=== PATIENT | female | born 2000 | race Caucasian/White ===

== ENCOUNTER → 2020-12-03 10:50 | Outpatient (BNVA) | payer BC, SELFPAY | PROVIDERS: Family Provider Family Medicine; Visit Provider Obstetrics & Gynecology | DX: Z12.4 Encounter for screening for malignant neoplasm of cervix (principal) | CPT/HCPCS: 88175 ==

== ENCOUNTER → 2020-12-10 15:27 | Outpatient (BNVA) | payer BC, SELFPAY | PROVIDERS: Family Provider Family Medicine; Visit Provider Obstetrics & Gynecology | DX: N75.0 Cyst of Bartholin's gland (principal); Z12.4 Encounter for screening for malignant neoplasm of cervix | CPT/HCPCS: 81025; 88304 ==

== ENCOUNTER → 2022-12-21 09:00 | Outpatient (BNVA) | payer OTHER, SELFPAY | PROVIDERS: Family Provider Family Medicine; PCP Family Medicine; Visit Provider Nurse Practitioner Women's Health | DX: Z12.4 Encounter for screening for malignant neoplasm of cervix (principal) | CPT/HCPCS: 88175 ==

== ENCOUNTER → 2023-05-03 08:24 | Outpatient (BNVA) | payer OTHER, SELFPAY | PROVIDERS: Family Provider Family Medicine; PCP Family Medicine; Referring Provider Family Medicine; Visit Provider Psychiatry & Neurology Neurology | DX: G51.0 Bell's palsy (principal) | CPT/HCPCS: 36415; 80053; 82306; 82607; 82746; 83735; 83921; 84439; 84443; 84481; 85025 ==

== ENCOUNTER 2023-05-17 13:44 | Outpatient (CLI) | payer OTHER, SELFPAY ==
--- NOTE | 2023-05-17 13:45 | MR_ITS ---
WS: [id number] MRI HEAD WITH CONTRAST WITH ATTENTION TO THE INTERNAL AUDITORY CANALS TECHNIQUE: Sagittal T1, T2 axial, T2 axial flair, axial susceptibility weighted imaging, axial diffus ion weighted images, and coronal T2 images were obtained. Pre and post T1 axial and post T1 coronal i mages. ADC and FSPGR images. Post gadolinium images with attention to the internal auditory canals. A xial fiesta imaging. 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 FINDINGS: Proximal 7th cranial nerves are normal in appearance. Normal trigeminal nerve root entry zones. No ev idence of enhancing IAC or CP angle mass. No abnormal enhancement in the IACs. Asymmetric enhancement in the right 7th cranial nerve involving the labyrinthine and tympanic segments extending to the mas toid segment more prominent compared to the right can be seen with typical sequelae of Herzog's palsy. Recommend clinical correlation. No enhancing IAC lesions. Normal posterior fossa. Normal vascular erica w voids at the skull base. No extra-axial fluid collections. No evidence of mass or mass effect. Paranasal sinuses and mastoid air cells are well aerated. No suspicious intracranial signal normaliti es. Normal optic chiasm and pituitary infundibulum. Temporal lobes and hippocampal formations are nor mal in appearance. No abnormal gadolinium enhancement. Normal dural venous sinuses. No other suspicio us findings. IMPRESSION: 1. No evidence of enhancing IAC or CP angle mass. Normal trigeminal nerve root entry zones. 2. Slight asymmetric enhancement involving the right labyrinthine and tympanic segments of the facia l nerve can be seen with normal sequelae of Herzog's palsy. Recommend clinical correlation. No enhancin g IAC lesions or fundal tuft enhancement. 3. No hemosiderin on the susceptibility weighted images. 4. No other suspicious findings.
[2023-05-17] MEDS: gadobenate dimeglumine 20 mL vial IV (15:29)
== END 2023-05-17 13:45 | disposition home or self-care (01) ==
LOC: RAD 13:45
PROVIDERS: PCP Family Medicine; Visit Provider Specialist
DX: G51.0 Bell's palsy (principal)
CPT/HCPCS: 70553; A9577

== ENCOUNTER 2023-06-07 11:48 | Outpatient (RCR) | payer OTHER, SELFPAY | END 2023-07-02 23:59 | disposition home or self-care (01) | LOC: SST 11:48 | PROVIDERS: Visit Provider Psychiatry & Neurology Neurology | DX: G51.0 Bell's palsy (principal) | CPT/HCPCS: 92523; 92526; 92610 ==

== ENCOUNTER 2023-06-27 09:45 | Outpatient (CLI) | payer OTHER, SELFPAY ==
--- NOTE | 2023-06-27 09:53 | XRR_ITS ---
PROCEDURE INFORMATION: Exam: XR Bilateral Hips Exam date and time: 06/27/2023 10:00 AM Age: 23 years old Clinical indication: Hip pain; Bilateral; Additional info: Bilateral hip pain, 2 views of each hip done TECHNIQUE: Imaging protocol: Radiologic exam of the bilateral hips. Views: 2 views of hips with pelvis when performed. COMPARISON: No relevant prior studies available. FINDINGS: Bones/joints: Unremarkable. No acute fracture. Soft tissues: Unremarkable. XR/XR hip BI 3-4V wo/w pel [id number] IMPRESSION: No acute findings.
== END 2023-06-27 09:46 | disposition home or self-care (01) ==
PROVIDERS: PCP Family Medicine; Visit Provider Family Medicine
DX: M25.552 Pain in left hip (principal); M25.551 Pain in right hip
CPT/HCPCS: 73521; 73522

== ENCOUNTER 2023-07-03 06:00 | Outpatient (RCR) | payer OTHER, SELFPAY | END 2023-08-02 23:59 | disposition home or self-care (01) | LOC: SST 06:00 | PROVIDERS: PCP Family Medicine; Visit Provider Psychiatry & Neurology Neurology | DX: G51.0 Bell's palsy (principal) | CPT/HCPCS: 92526 ==

== ENCOUNTER 2023-07-20 13:34 | Outpatient (CLI) | payer OTHER, SELFPAY ==
--- NOTE | 2023-07-20 13:45 | MR_ITS ---
WS: [id number] MRI LUMBAR SPINE NONCONTRAST HISTORY: bilat hip, lower back pain, sciatica COMPARISON: None available. TECHNIQUE: Sagittal and axial multisequence imaging is submitted. Normal lumbar alignment with no compression fractures or marrow edema. Mild disc desiccation and narrowing at L5-S1. Conus terminates normally at L1-2 disc level. L1-L2: Normal. L2-L3: Normal. L3-L4: Normal. L4-L5: Very mild facet and ligamentum flavum hypertrophy. No high-grade stenosis. L5-S1: Moderate to large central disc protrusion. Disc protrusion contacts the S1 nerve roots bilater ally. There is mass effect upon the ventral thecal sac. Mild bilateral subarticular recess stenosis a nd encroachment. IMPRESSION: 1. Moderate to large central disc protrusion at L5-S1 encroaching into the subarticular recesses. Dis c contacts the S1 nerve roots bilaterally. 2. No additional stenoses or disc protrusions.
== END 2023-07-20 13:35 | disposition home or self-care (01) ==
LOC: RAD 13:34
PROVIDERS: PCP Family Medicine; Visit Provider Family Medicine
DX: M51.17 Intervertebral disc disorders with radiculopathy, lumbosacral region (principal); M25.552 Pain in left hip; M25.551 Pain in right hip; G89.29 Other chronic pain
CPT/HCPCS: 72148

== ENCOUNTER 2023-08-03 06:00 | Outpatient (RCR) | payer OTHER, SELFPAY | END 2023-09-01 23:59 | disposition home or self-care (01) | LOC: SST 06:00 | PROVIDERS: PCP Family Medicine; Visit Provider Psychiatry & Neurology Neurology | DX: G51.0 Bell's palsy (principal) | CPT/HCPCS: 92526 ==

== ENCOUNTER 2023-08-04 06:00 | Outpatient (RCR) | payer OTHER, SELFPAY | END 2023-09-01 23:59 | disposition home or self-care (01) | LOC: SPT 06:00 | PROVIDERS: PCP Family Medicine; Visit Provider Family Medicine | DX: M51.27 Other intervertebral disc displacement, lumbosacral region (principal) | CPT/HCPCS: 97110; 97161 ==

== ENCOUNTER → 2023-08-23 08:31 | Outpatient (BNVA) | payer OTHER, SELFPAY | PROVIDERS: PCP Family Medicine; Referring Provider Family Medicine; Visit Provider Orthopaedic Surgery | DX: M51.27 Other intervertebral disc displacement, lumbosacral region (principal) | CPT/HCPCS: 72110 ==

== ENCOUNTER 2023-09-02 06:00 | Outpatient (RCR) | payer OTHER, SELFPAY | END 2023-10-02 23:59 | disposition home or self-care (01) | LOC: SST 06:00 | PROVIDERS: PCP Family Medicine; Visit Provider Psychiatry & Neurology Neurology | DX: G51.0 Bell's palsy (principal) | CPT/HCPCS: 92526 ==

== ENCOUNTER 2023-10-03 06:00 | Outpatient (RCR) | payer OTHER, SELFPAY | END 2023-11-02 23:59 | disposition home or self-care (01) | LOC: SST 06:00 | PROVIDERS: PCP Family Medicine; Visit Provider Psychiatry & Neurology Neurology | DX: G51.0 Bell's palsy (principal) | CPT/HCPCS: 92526 ==

== ENCOUNTER 2023-11-03 06:00 | Outpatient (RCR) | payer OTHER, SELFPAY | END 2023-12-01 23:59 | disposition home or self-care (01) | LOC: SST 06:00 | PROVIDERS: PCP Family Medicine; Visit Provider Psychiatry & Neurology Neurology | DX: G51.0 Bell's palsy (principal) | CPT/HCPCS: 92526 ==

== ENCOUNTER 2023-12-02 06:00 | Outpatient (RCR) | payer OTHER, SELFPAY | END 2024-01-01 23:59 | disposition home or self-care (01) | LOC: SST 06:00 | PROVIDERS: PCP Family Medicine; Visit Provider Psychiatry & Neurology Neurology | DX: G51.0 Bell's palsy (principal) | CPT/HCPCS: 92526 ==

== ENCOUNTER 2024-01-02 06:00 | Outpatient (RCR) | payer OTHER, SELFPAY | END 2024-01-31 23:59 | disposition home or self-care (01) | LOC: SST 06:00 | PROVIDERS: PCP Family Medicine; Visit Provider Psychiatry & Neurology Neurology | DX: G51.0 Bell's palsy (principal) | CPT/HCPCS: 92526 ==

== ENCOUNTER 2024-02-01 06:00 | Outpatient (RCR) | payer OTHER, SELFPAY | END 2024-02-14 23:59 | disposition home or self-care (01) | LOC: SST 06:00 | PROVIDERS: PCP Family Medicine; Visit Provider Psychiatry & Neurology Neurology | DX: G51.0 Bell's palsy (principal) | CPT/HCPCS: 92526 ==

== ENCOUNTER → 2024-10-08 10:54 | Outpatient (BNVA) | payer OTHER, SELFPAY | PROVIDERS: PCP Family Medicine; Visit Provider Family Medicine | DX: E55.9 Vitamin D deficiency, unspecified (principal) | CPT/HCPCS: 80048; 82306 ==

== ENCOUNTER → 2025-02-12 11:08 | Outpatient (BNVA) | payer OTHER, SELFPAY | PROVIDERS: PCP Family Medicine; Visit Provider Nurse Practitioner Women's Health | DX: R10.2 Pelvic and perineal pain (principal) | CPT/HCPCS: 76830 ==